=== PATIENT | male | born 1960 | race Caucasian/White ===

== ENCOUNTER 2016-09-25 15:23 | Observation (INO) | payer BC ==
[~2016-09-25] VITALS: Ht 167.6 cm; Wt 82.5 kg
[~2016-09-25 15:23] MED LIST: ALPRAZOLAM0.5 MG PO; AMBIEN10 MG PO; ASPIRIN 32325 MG/TAB PO; COQ PO; FISH OIL1000 MG PO; LIPITOR 80MG80 MG PO; LITHIUM 60600 MG/CAP PO; LITHOBID 3300 MG/TAB PO; LOPID 600M600 MG/TAB PO; METOPROLOL SUCC50 MG PO; OXYCODONE5 M1 PO; PLAVIX 75MG TAB75 MG PO; PRILOSEC 20MG20 MG PO; TOPROL XL 25MG25 MG PO; TRICOR145 MG PO; WELLBUTRIN75 MG PO; XANAX 0.5MG0.5 MG PO; ZOCOR 40MG40 MG PO; ZOCOR40 MG PO; [UNRECOGNIZED DRUG - OTHER] PO
[2016-09-25 15:24] VITALS: BP 143/82; PULSE 50; TEMP 97.6
[2016-09-25 17:22] LABS: BASO % 0.6 % (0.0-2.0); EOS # 0.2 (0.0-0.7); EOS % 2.6 % (0-4.0); GRAN # 3.7 (1.4-6.5); GRAN % 53.7 % (42.2-75.2); HEMATOCRIT 42.9 % (42.0-52.0); HEMOGLOBIN 14.8 g/dl (13.5-18.0); LYMPH # 2.5 (1.2-3.4); LYMPH % 35.6 % (20.0-51.0); MEAN CELL VOLUME 92 fl (80.0-100.0); MEAN CORPUSCULAR HEMOGLOBIN 32 pg (27.0-31.0); MEAN CORPUSCULAR HGB CONC 35 g/dl (33.0-37.0); MONO # 0.5 (0.1-0.6); MONO % 7.4 % (1.7-9.3); PLATELET COUNT 247 K/mm3 (130-400); RED BLOOD COUNT 4.66 M/mm3 (4.20-5.60); REDCELL DISTRIBUTION WIDTH-CV 13.2 % (11.5-14.5); WHITE BLOOD COUNT 6.9 K/mm3 (4.8-10.8)
[2016-09-25] MEDS ORDERED: TRENTAL 400MG400 MG PO (17:24)
[2016-09-25] MEDS ORDERED: LAMICTAL 100MG100 MG (17:24)
[2016-09-25] MEDS ORDERED: LAMICTAL 100MG100 MG PO (17:24)
[2016-09-25 17:34] VITALS: BP 148/75; PULSE 48; TEMP 97.6
[2016-09-25 17:48] LABS: ANION GAP 9 mmol/L (7-16); BLOOD UREA NITROGEN 10 mg/dL (9-20); CALCIUM 9.3 mg/dL (8.4-10.2); CARBON DIOXIDE 26 mmol/L (22-30); CHLORIDE 106 mmol/L (98-107); CREATININE, serum 0.98 mg/dL (0.66-1.25); GLUCOSE 93 mg/dL (74-106); POTASSIUM 4.2 mmol/L (3.4-5.0); SODIUM 140 mmol/L (137-145)
[2016-09-25 19:50] VITALS: BP 141/75; PULSE 55; TEMP 98.1
[2016-09-25] MEDS ORDERED: PRILOSEC 20MG20 MG PO (20:11)
[2016-09-25 21:51] LABS: B-TYPE NATRIURETIC PEPTIDE 59 pg/mL (0-125)
[2016-09-25 23:48] VITALS: BP 126/68; PULSE 69; TEMP 97
[2016-09-26] VITALS (10 sets, daily range): BP systolic 92–137; BP diastolic 63–77; PULSE 55–96; TEMP 98.2–98.5
[2016-09-26] MEDS ORDERED: ASPIRIN 81M81 MG/TA2 PO (13:04)
[2016-09-26] MEDS ORDERED: PLAVIX 75MG TAB75 MG PO (13:05)
[2016-09-26] MEDS ORDERED: COZAAR 25MG25 MG/TAB PO (13:05)
== END 2016-09-26 15:03 | disposition home or self-care (01) ==
LOC: MEDICAL 15:23
PROVIDERS: Internal Medicine
DX: R07.9 Chest pain, unspecified (principal); I10 Essential (primary) hypertension; E78.5 Hyperlipidemia, unspecified; I25.10 Atherosclerotic heart disease of native coronary artery without angina pectoris; Z95.5 Presence of coronary angioplasty implant and graft; F17.210 Nicotine dependence, cigarettes, uncomplicated
CPT/HCPCS: 99222-AI; 99232-AI; 99239; A9502; G0378; G0379; J2785

== ENCOUNTER → 2016-11-09 | Outpatient (CLI) | payer BC ==
[~2016-11-09] MED LIST changes: +ASPIRIN 81M81 MG/TA2 PO; +COZAAR 25MG25 MG/TAB PO; +LAMICTAL 100MG100 MG; +LAMICTAL 100MG100 MG PO; +TRENTAL 400MG400 MG PO
== END ==
LOC: BHSO 16:12
DX: F41.1 Generalized anxiety disorder (principal)

== ENCOUNTER → 2017-08-03 | Outpatient (CLI) | payer BC | LOC: BHSO 16:12 | DX: F31.73 Bipolar disorder, in partial remission, most recent episode manic (principal) ==

== ENCOUNTER → 2018-01-14 | Outpatient (CLI) | payer BC ==
[2018-01-14 17:49] LABS: CREATININE, serum 1.04 mg/dL (0.66-1.25)
== END ==
LOC: COL.LAB 17:20
PROVIDERS: Internal Medicine
DX: R91.8 Other nonspecific abnormal finding of lung field (principal); R49.0 Dysphonia; Z87.891 Personal history of nicotine dependence

== ENCOUNTER → 2018-01-18 | Outpatient (CLI) | payer BC | LOC: BHSO 15:37 | DX: F33.42 Major depressive disorder, recurrent, in full remission (principal) | CPT/HCPCS: G0463 ==

== ENCOUNTER → 2018-07-05 | Outpatient (CLI) | payer BC | LOC: BHSO 15:54 | DX: F33.42 Major depressive disorder, recurrent, in full remission (principal) | CPT/HCPCS: G0463 ==

== ENCOUNTER → 2019-01-02 | Outpatient (CLI) | payer BC | LOC: BHSO 16:14 | DX: F41.1 Generalized anxiety disorder (principal) | CPT/HCPCS: G0463 ==

== ENCOUNTER → 2019-07-03 | Outpatient (CLI) | payer BC | LOC: BHSO 16:08 | DX: F41.1 Generalized anxiety disorder (principal) | CPT/HCPCS: G0463 ==

== ENCOUNTER 2020-04-16 10:21 | Day surgery (SDC) | payer BC ==
[2020-04-16] VITALS (10 sets, daily range): BP systolic 108–127; BP diastolic 68–81; PULSE 43–58; TEMP 97.9
[~2020-04-16] VITALS: Ht 167.8 cm; Wt 82.5 kg
[2020-04-16 10:59] LABS: PROTHROMBIN TIME 11.4 SECONDS (9.7-12.8)
[2020-04-16 11:00] LABS: HEMATOCRIT 44.8 % (42.0-52.0); HEMOGLOBIN 15.1 g/dl (13.5-18.0); MEAN CELL VOLUME 92 fl (80.0-100.0); MEAN CORPUSCULAR HEMOGLOBIN 31 pg (27.0-31.0); MEAN CORPUSCULAR HGB CONC 34 g/dl (33.0-37.0); MEAN PLATELET VOLUME 8.8 fl (7.4-10.4); PLATELET COUNT 223 K/mm3 (130-400); RED BLOOD COUNT 4.87 M/mm3 (4.20-5.60); REDCELL DISTRIBUTION WIDTH-CV 13.1 % (11.5-14.5)
[2020-04-16] MEDS ORDERED: ASPI325T6 PO (11:02)
[2020-04-16] MEDS ORDERED: PROTONIX20 MG PO (11:04)
[2020-04-16] MEDS ORDERED: SONATA 10MG10 MG (11:07)
[2020-04-16 11:12] LABS: CALCIUM 9.1 mg/dL (8.4-10.2); CREATININE, serum 0.97 (0.66-1.25); POTASSIUM 4.5 mmol/L (3.4-5.0)
--- NOTE | 2020-04-16 12:58 | NUR ---
SEE MERGE DOCUMENTATION FOR MEDICATION ADMINISTRATION AND INTRA/POST PROCEDURE SEDATION ASSESSEMENTS.
--- NOTE | 2020-04-16 14:54 | NUR ---
PT TOLERATING INTAKE WITH NO N/V.
--- NOTE | 2020-04-16 16:07 | NUR ---
PT UP AND AMBULATING IN AND AROUND THE UNIT. PT VOIDED WITH NO COMPLICATIONS. RELEASED 5ML OF AIR FROM TR BAND AND PT BEGAN TO HAVING OOZING. 5ML OF AIR WAS PUT BACK INTO THE TR BAND. THIR RN WILL CONTINUE TO MONITOR AND TRY RELEASING AIR AGAIN IN 30 MINUTES.
--- NOTE | 2020-04-16 16:30 | NUR ---
Discharge instructions were reviewed with pt. Pt voiced understanding. Encouraged pt to improve diet, exercise and importance to quit smoking. Pt aware. TR band was removed, 2x2 Gauze and Coban applied to right radial site. IV was discontinued with catheter tip intact, no phlebitis or infiltration. Pt ambulated in and around the unit and voided with no complications. Pt was discharged via wheelchair to the care of spouse in private vehicle with discharge instructions in hand.
== END 2020-04-16 17:00 | disposition home or self-care (01) ==
LOC: COL.CAR 10:21
PROVIDERS: Internal Medicine Interventional Cardiology
DX: I25.119 Atherosclerotic heart disease of native coronary artery with unspecified angina pectoris (principal); F17.210 Nicotine dependence, cigarettes, uncomplicated; E78.5 Hyperlipidemia, unspecified; Z79.82 Long term (current) use of aspirin; I25.2 Old myocardial infarction
CPT/HCPCS: J1644; J2250; J3010; Q9967

== ENCOUNTER → 2020-06-25 | Outpatient (CLI) | payer BC ==
[~2020-06-25] MED LIST changes: +ASPI325T6 PO; +PROTONIX20 MG PO; +SONATA 10MG10 MG
== END ==
LOC: BHSO 15:55
DX: F33.42 Major depressive disorder, recurrent, in full remission (principal)
CPT/HCPCS: G0463

== ENCOUNTER 2021-10-14 08:58 | Day surgery (SDC) | payer BC ==
[~2021-10-14] VITALS: Ht 167.6 cm; Wt 85.0 kg
[2021-10-14 09:31] VITALS: BP 132/93; PULSE 77; TEMP 97.7
[2021-10-14] MEDS ORDERED: AMBIEN 10MG10 MG PO (09:35)
[2021-10-14] MEDS ORDERED: VITAMIND3 5000 PO (09:36)
[2021-10-14 10:58] VITALS: BP 128/90; PULSE 74; TEMP 97.3
[2021-10-14 11:15] VITALS: BP 125/75; PULSE 62
[2021-10-14 11:30] VITALS: BP 131/73; PULSE 58
--- NOTE | 2021-10-14 11:50 | NUR ---
1058 Pt returns from endo procedure via cart and RN assist to [facility]. Pt ambulates from cart to recliner with RN assist. Monitors on and alarms set. Call light within reach. Report received from this RN. Pt alert and oriented. Pt requests applesauce and Sprite. Pt denies any pain or nausea. Pt's brother present in room. 1115 Pt taking food and drink well. No complications noted. 1144 Discharge instructions given to pt and pt's brother. All questions answered to their satisfaction. Handed to pt are a thank you card and discharge information. 1150 Pt transferred out of the hospital via wheelchair and D. assist, to private vehicle driven by pt's brother.
== END 2021-10-14 11:50 | disposition home or self-care (01) ==
LOC: SDCO 08:58
DX: Z12.11 Encounter for screening for malignant neoplasm of colon (principal); K21.9 Gastro-esophageal reflux disease without esophagitis; I10 Essential (primary) hypertension; I25.2 Old myocardial infarction; G47.30 Sleep apnea, unspecified; E78.5 Hyperlipidemia, unspecified; E55.9 Vitamin D deficiency, unspecified; I25.10 Atherosclerotic heart disease of native coronary artery without angina pectoris; J44.9 Chronic obstructive pulmonary disease, unspecified; G47.33 Obstructive sleep apnea (adult) (pediatric); G62.9 Polyneuropathy, unspecified; R73.9 Hyperglycemia, unspecified; M10.9 Gout, unspecified; M19.90 Unspecified osteoarthritis, unspecified site; F41.9 Anxiety disorder, unspecified; F17.210 Nicotine dependence, cigarettes, uncomplicated; Z79.899 Other long term (current) drug therapy; Z79.82 Long term (current) use of aspirin; Z95.1 Presence of aortocoronary bypass graft
CPT/HCPCS: J2704; J7120

== ENCOUNTER → 2022-02-27 | Outpatient (CLI) | payer BC ==
[~2022-02-27] MED LIST changes: +AMBIEN 10MG10 MG PO; +VITAMIND3 5000 PO
== END ==
LOC: COL.RAD 14:49
DX: Z12.2 Encounter for screening for malignant neoplasm of respiratory organs (principal); J44.9 Chronic obstructive pulmonary disease, unspecified; F17.210 Nicotine dependence, cigarettes, uncomplicated